=== PATIENT | female | born 1950 | race Caucasian/White ===

== ENCOUNTER 2017-07-15 06:58 | Inpatient (IN) | payer BC ==
[2017-07-15] MEDS ORDERED: ceFAZolin 1 GM Vial ONE (07:10)
[2017-07-15] MEDS ORDERED: Ondansetron 4 MG/2 ML SDV ONE (07:10)
[2017-07-15] MEDS ORDERED: Morphine PF 10 MG/10 ML SDV ONE (07:11)
[2017-07-15] MEDS ORDERED: Propofol 200 MG/20 ML SDV ONE ×2 (07:11→09:28)
[2017-07-15] MEDS ORDERED: fentaNYL 100 MCG/2 ML SDV ONE (07:11)
[2017-07-15] MEDS ORDERED: Midazolam 1 MG/ML 2 ML SDV ONE (07:11)
[2017-07-15] MEDS ORDERED: Sodium Chloride 0.9% 10 ML Syringe FLUSH PRN (07:28)
[2017-07-15] MEDS ORDERED: Lactated Ringers 1,000 ML IV SCH (07:28)
[2017-07-15] MEDS ORDERED: Lidocaine 1%/Sod Bicarbonate in NS 8.4% 1 ML Syringe PRN (07:28)
--- NOTE | 2017-07-15 07:34 | PCM.PREANE ---
Preanesthetic Assessment - Anesthesia/Transfusion/Family Hx Anesthesia History: Prior Anesthesia Without Reaction Family History of Anesthesia Reaction: No Transfusion History: No Prior Transfusion(s) - Review of Systems General: No Symptoms Pulmonary: No Symptoms, Other Cardiovascular: Other (HTN, CAD) Gastrointestinal: No Symptoms Neurological: Other (back pain, arthritis in back ) Other: Reports: None - Physical Assessment NPO Status Date: 07/14/17 NPO Status Time: 20:30 Pulse: 58 O2 Sat by Pulse Oximetry: 98 Respiratory Rate: 16 Blood Pressure: 134/62 Temperature: 36.6 C Weight: 81.465 kg ASA Class: 2 Mental Status: Alert & Oriented x3 Airway Class: Mallampati = 2 Dentition: Reports: Normal Dentition Thyro-Mental Finger Breadths: 3 Mouth Opening Finger Breadths: 3 ROM/Head Extension: Full Lungs: Clear to Auscultation, Normal Respiratory Effort Cardiovascular: Regular Rate, Regular Rhythm - Lab Values: Laboratory Last Values MRSA (PCR) Negative 07/02/17 15:01 - Allergies Allergies/Adverse Reactions: Allergies Allergy/AdvReac Type Severity Reaction Status Date / Time Sulfa (Sulfonamide Allergy Hives Verified 07/14/17 12:32 Antibiotics) - Blood Blood Available: No Product(s) Available: None - Anesthesia Plan Pre-Op Medication Ordered: None - Acknowledgements Anesthesia Type Planned: Spinal Pt an Appropriate Candidate for the Planned Anesthesia: Yes Alternatives and Risks of Anesthesia Discussed w Pt/Guardian: Yes Pt/Guardian Understands and Agrees with Anesthesia Plan: Yes PreAnesthesia Questionnaire HEENT History: Reports: Impaired Vision, Other (See Below) Other HEENT History: wears glasses Cardiovascular History: Reports: High Cholesterol, Hypertension Respiratory History: Reports: None Genitourinary History: Reports: None [employer] History: Reports: None Musculoskeletal History: Reports: Other (See Below) Other Musculoskeletal History: chronic ankle pain, low back pain, right knee pain, right leg fracture, ankle dislocation Neurological History: Reports: None Psychiatric History: Reports: None Endocrine/Metabolic History: Reports: Obesity/BMI 30+ Hematologic History: Reports: None Immunologic History: Reports: None Oncologic (Cancer) History: Reports: None Dermatologic History: Reports: None - Past Surgical History Cardiovascular Surgical History: Reports: None Respiratory Surgical History: Reports: None GI Surgical History: Reports: Bariatric Procedure, Colonoscopy Other GI Surgeries/Procedures: lap band gastric surgery Female Surgical History: Reports: None Male Surgical History: Reports: None Endocrine Surgical History: Reports: None Neurological Surgical History: Reports: None Musculoskeletal Surgical History: Reports: Shoulder Surgery, Other (See Below) Other Musculoskeletal Surgeries/Procedures:: right leg fracture with surgery, knee arthroscopy, right rotator cuff repair - SUBSTANCE USE Smoking Status *Q: Former Smoker Recreational Drug Use History: No - HOME MEDS Home Medications: Home Meds Losartan [Cozaar] 50 mg PO DAILY 07/14/17 [History] Multivitamin [Daily Avelina] 1 tab PO DAILY 07/14/17 [History] cloNIDine HCl [Catapres] 0.2 mg PO BEDTIME 07/14/17 [History] traMADol [Ultram] 50 mg PO TID PRN 07/14/17 [History] - CURRENT (IN HOUSE) MEDS Current Meds: Current Medications Bisacodyl (Dulcolax) 5 mg PO DAILY PRN PRN Reason: Constipation Morphine Sulfate 8 mg/Epinephrine HCl 0.3 mg/Cefuroxime Sodium 750 mg/Ketorolac Tromethamine 30 mg/Sodium Chloride 27.9 ml 0 mg .XX ONETIME ONE Stop: 07/15/17 09:01 Cyclobenzaprine HCl (Flexeril) 10 mg PO TID PRN PRN Reason: Spasms Diphenhydramine HCl (Benadryl) 25 mg IVPUSH Q4H PRN PRN Reason: Nausea Docusate Sodium (Colace) 100 mg PO BID [facility] Famotidine (Pepcid) 20 mg PO BID [facility] Lactated Ringer's (Ringers, Lactated) 1,000 mls @ 125 mls/hr IV ASDIRECTED [facility] Stop: 07/15/17 23:00 Cefazolin Sodium/Dextrose 2 gm (/ Premix) 50 mls @ 100 mls/hr IV Q8H [facility] Stop: 07/15/17 23:29 Lidocaine/Sodium Bicarbonate (Buffered Lidocaine 1% In Ns 8.4%) 0.25 ml .XX ONETIME PRN PRN Reason: Prior to IV Start Stop: 07/15/17 18:00 Magnesium Hydroxide (Milk Of Magnesia) 30 ml PO BID PRN PRN Reason: Constipation Morphine Sulfate (Morphine) 2 mg IVPUSH Q2H PRN PRN Reason: Breakthrough Pain Ondansetron HCl (Zofran) 4 mg IVPUSH Q6H PRN PRN Reason: Nausea/Vomiting Oxycodone/Acetaminophen (Percocet 325-5 Mg) 1 - 2 tab PO Q4H PRN PRN Reason: Pain Rivaroxaban (Xarelto) 10 mg PO DAILY [facility] Senna (Senna) 8.6 mg PO BID PRN PRN Reason: Constipation Sodium Chloride (Saline Flush) 10 ml FLUSH ASDIRECTED PRN PRN Reason: Keep Vein Open Stop: 07/15/17 18:00 Discontinued Medications Cefazolin Sodium (Ancef) Confirm Administered Dose 2 gm .ROUTE .STK-MED ONE Stop: 07/15/17 07:11 Fentanyl (Sublimaze) Confirm Administered Dose 100 mcg .ROUTE .STK-MED ONE Stop: 07/15/17 07:12 Midazolam HCl (Versed 1 Mg/Ml) Confirm Administered Dose 2 mg .ROUTE .STK-MED ONE Stop: 07/15/17 07:12 Morphine Sulfate (Duramorph Pf) Confirm Administered Dose 10 mg .ROUTE .STK-MED ONE Stop: 07/15/17 07:12 Ondansetron HCl (Zofran) Confirm Administered Dose 4 mg .ROUTE .STK-MED ONE Stop: 07/15/17 07:11 Propofol (Diprivan 20 Ml) Confirm Administered Dose 400 mg .ROUTE .STK-MED ONE Stop: 07/15/17 07:12
[2017-07-15] MEDS ORDERED: ePHEDrine 50 MG/ML SDV ONE (09:10)
[2017-07-15] MEDS ORDERED: Lactated Ringers 1,000 ML ONE ×2 (09:10→10:20)
[2017-07-15] MEDS: Bupivacaine 0.25% 30 ML SDV ONE ×2 (09:20→09:50)
[2017-07-15] MEDS: ceFAZolin 1 GM Vial ONE ×2 (09:21→09:44)
[2017-07-15] MEDS: Iodine/Sodium Iodide 2% Tincture 30 ML Bottle ONE ×2 (09:22→09:41)
[2017-07-15] MEDS: Morphine 8 MG, EPINEPHrine 0.3 MG, Cefuroxime 750 MG, Ketorolac 30 MG, Sodium Chloride ... ONE ×15 (09:23→12:14)
[2017-07-15] MEDS ORDERED: Sennosides 8.6 MG Tab PO PRN (10:00)
[2017-07-15] MEDS ORDERED: Bisacodyl 5 MG Tab PO PRN (10:00)
[2017-07-15] MEDS ORDERED: Magnesium Hydroxide 400 MG/5 ML Susp 30 ML Cup PO PRN (10:00)
[2017-07-15] MEDS ORDERED: Morphine 2 MG/ML Syringe IVPUSH PRN (10:00)
[2017-07-15] MEDS ORDERED: Ondansetron 4 MG/2 ML SDV IVPUSH PRN ×2 (10:00→10:35)
[2017-07-15] MEDS ORDERED: diphenhydrAMINE 50 MG/ML SDV IVPUSH PRN ×2 (10:00→10:35)
--- NOTE | 2017-07-15 10:34 | PCM.POSTAN ---
POST ANESTHESIA ASSESSMENT - MENTAL STATUS Mental Status: Alert, Oriented - VITAL SIGNS Pulse Rate: 84 SaO2: 95 Resp Rate: 12 Blood Pressure: 116/49 Temperature: 36.2 C - RESPIRATORY Respiratory Status: Respiratory Rate WNL, Airway Patent, O2 Saturation Stable, Supplemental Oxygen - CARDIOVASCULAR CV Status: Pulse Rate WNL, Blood Pressure Stable - GASTROINTESTINAL GI Status: No Symptoms - PAIN Pain Score: 0 - POST OP HYDRATION Hydration Status: Adequate & Stable
[2017-07-15] MEDS ORDERED: fentaNYL 100 MCG/2 ML SDV IVPUSH PRN (10:35)
[2017-07-15] MEDS ORDERED: HYDROmorphone 0.5 MG/0.5 ML Syringe IVPUSH PRN (10:35)
--- NOTE | 2017-07-15 10:56 | CR ---
Right knee: AP and crosstable lateral views of the right knee were obtained. Comparison: Previous standing AP knee exam of 05/14/17. Right knee prosthesis is seen which has been recently placed. Components are aligned. Soft tissue air is noted from the surgical procedure. Underlying bony structures are intact. Impression: 1. Satisfactory radiographic appearance of recently placed right knee prosthesis. Diagnostic code #2
[2017-07-15] MEDS ORDERED: Vancomycin 1 GM SDV ONE (11:00)
[2017-07-15] MEDS: Acetaminophen/oxyCODONE 325-5 MG Tab PO PRN ×2 (13:01→21:53)
--- NOTE | 2017-07-15 14:05 | PCM.CONSN ---
- General Info Date of Service: 07/15/17 Subjective Update: 66 year old female with bilateral knee DJD, s/p right total knee arthroplasty. Denies N/V, currently is pain free. Hospitalist service is consulted for medical management. Functional Status: Reports: Pain Controlled, Tolerating Diet, Urinating - Review of Systems General: Reports: No Symptoms HEENT: Reports: No Symptoms Pulmonary: Reports: No Symptoms Cardiovascular: Reports: No Symptoms Gastrointestinal: Reports: No Symptoms Genitourinary: Reports: No Symptoms Musculoskeletal: Reports: No Symptoms Skin: Reports: No Symptoms Neurological: Reports: No Symptoms Psychiatric: Reports: No Symptoms - Patient Data Vitals - Most Recent: Last Vital Signs Temp 36.2 C 07/15/17 12:30 Pulse 68 07/15/17 13:30 Resp 16 07/15/17 13:30 BP 122/63 07/15/17 13:30 Pulse Ox 100 07/15/17 13:30 Weight - Most Recent: 81.193 kg I&O - Last 24 Hours: Intake & Output 07/14/17 07/15/17 07/15/17 22:59 06:59 14:59 Intake Total 150 Output Total 465 Balance -315 Med Orders - Current: Current Medications Bisacodyl (Dulcolax) 5 mg PO DAILY PRN PRN Reason: Constipation Clonidine HCl (Catapres) 0.2 mg PO BEDTIME [facility] Cyclobenzaprine HCl (Flexeril) 10 mg PO TID PRN PRN Reason: Spasms Diphenhydramine HCl (Benadryl) 25 mg IVPUSH Q4H PRN PRN Reason: Nausea Diphenhydramine HCl (Benadryl) 25 mg IVPUSH Q6H PRN PRN Reason: itching Stop: 07/15/17 18:00 Docusate Sodium (Colace) 100 mg PO BID [facility] Famotidine (Pepcid) 20 mg PO BID [facility] Fentanyl (Sublimaze) 50 mcg IVPUSH Q5M PRN PRN Reason: pain Stop: 07/15/17 18:00 Cefazolin Sodium/Dextrose 2 gm (/ Premix) 50 mls @ 100 mls/hr IV Q8H [facility] Stop: 07/16/17 07:59 Losartan Potassium (Cozaar) 50 mg PO DAILY [facility] Magnesium Hydroxide (Milk Of Magnesia) 30 ml PO BID PRN PRN Reason: Constipation Morphine Sulfate (Morphine) 2 mg IVPUSH Q2H PRN PRN Reason: Breakthrough Pain Ondansetron HCl (Zofran) 4 mg IVPUSH Q6H PRN PRN Reason: Nausea/Vomiting Ondansetron HCl (Zofran) 4 mg IVPUSH ONETIME PRN PRN Reason: Nausea/Vomiting Oxycodone/Acetaminophen (Percocet 325-5 Mg) 1 - 2 tab PO Q4H PRN PRN Reason: Pain Last Admin: 07/15/17 13:01 Dose: 2 tab Rivaroxaban (Xarelto) 10 mg PO DAILY [facility] Senna (Senna) 8.6 mg PO BID PRN PRN Reason: Constipation Sodium Chloride (Saline Flush) 10 ml FLUSH ASDIRECTED PRN PRN Reason: Keep Vein Open Stop: 07/15/17 18:00 Discontinued Medications Bupivacaine HCl (Marcaine 0.25%) Confirm Administered Dose 30 ml .ROUTE .STK- MED ONE Stop: 07/15/17 07:34 Last Admin: 07/15/17 09:50 Dose: 30 ml Cefazolin Sodium (Ancef) Confirm Administered Dose 2 gm .ROUTE .STK-MED ONE Stop: 07/15/17 07:11 Cefazolin Sodium (Ancef) Confirm Administered Dose 2 gm .ROUTE .STK-MED ONE Stop: 07/15/17 07:34 Last Admin: 07/15/17 09:44 Dose: 2 gm Morphine Sulfate 8 mg/Epinephrine HCl 0.3 mg/Cefuroxime Sodium 750 mg/Ketorolac Tromethamine 30 mg/Sodium Chloride 27.9 ml 0 mg .XX ONETIME ONE Stop: 07/15/17 09:01 Last Admin: 07/15/17 12:14 Dose: Not Given Ephedrine Sulfate (Ephedrine Sulfate) Confirm Administered Dose 50 mg .ROUTE .STK-MED ONE Stop: 07/15/17 09:11 Fentanyl (Sublimaze) Confirm Administered Dose 100 mcg .ROUTE .STK-MED ONE Stop: 07/15/17 07:12 Hydromorphone HCl (Dilaudid) 0.5 mg IVPUSH Q15M PRN PRN Reason: Pain (severe 7-10) Stop: 07/15/17 10:36 Lactated Ringer's (Ringers, Lactated) 1,000 mls @ 125 mls/hr IV ASDIRECTED [facility] Stop: 07/15/17 23:00 Last Admin: 07/15/17 07:30 Dose: 125 mls/hr Lactated Ringer's (Ringers, Lactated) Confirm Administered Dose 1,000 mls @ as directed .ROUTE .STK-MED ONE Stop: 07/15/17 09:11 Lactated Ringer's (Ringers, Lactated) Confirm Administered Dose 1,000 mls @ as directed .ROUTE .STK-MED ONE Stop: 07/15/17 10:21 Iodine (Iodine 2% Mild Tincture) Confirm Administered Dose 30 ml .ROUTE .STK- MED ONE Stop: 07/15/17 07:34 Last Admin: 07/15/17 09:41 Dose: 18 ml Lidocaine/Sodium Bicarbonate (Buffered Lidocaine 1% In Ns 8.4%) 0.25 ml .XX ONETIME PRN PRN Reason: Prior to IV Start Stop: 07/15/17 18:00 Last Admin: 07/15/17 07:29 Dose: 0.25 ml Midazolam HCl (Versed 1 Mg/Ml) Confirm Administered Dose 2 mg .ROUTE .STK-MED ONE Stop: 07/15/17 07:12 Morphine Sulfate (Duramorph Pf) Confirm Administered Dose 10 mg .ROUTE .STK-MED ONE Stop: 07/15/17 07:12 Ondansetron HCl (Zofran) Confirm Administered Dose 4 mg .ROUTE .STK-MED ONE Stop: 07/15/17 07:11 Propofol (Diprivan 20 Ml) Confirm Administered Dose 400 mg .ROUTE .STK-MED ONE Stop: 07/15/17 07:12 Propofol (Diprivan 20 Ml) Confirm Administered Dose 200 mg .ROUTE .STK-MED ONE Stop: 07/15/17 09:29 Tranexamic Acid (Cyklokapron) Confirm Administered Dose 1,000 mg .ROUTE .STK- MED ONE Stop: 07/15/17 07:34 Last Admin: 07/15/17 09:56 Dose: 1,000 mg Vancomycin HCl (Vancomycin) 1 gm .XX ONETIME ONE Stop: 07/15/17 11:01 Last Admin: 07/15/17 13:12 Dose: Not Given - Exam Quality Assessment: Urine Catheter, DVT Prophylaxis General: Alert, Oriented, Cooperative, No Acute Distress HEENT: Pupils Equal, Pupils Reactive, EOMI Neck: Supple, Trachea Midline Lungs: Normal Respiratory Effort Cardiovascular: Regular Rate, Regular Rhythm GI/Abdominal Exam: Normal Bowel Sounds, Soft, Non-Tender, No Organomegaly, No Distention (Female) Exam: Deferred Back Exam: Normal Inspection Extremities: Normal Inspection Skin: Warm Wound/Incisions: Dressing Dry and Intact Neurological: No New Focal Deficit Psy/Mental Status: Alert, Normal Affect, Normal Mood Consult PN Assessment/Plan POD#: 0 Procedures: Procedures ASSAY OF PREALBUMIN (06/25/17) CHEST X-RAY 2VW FRONTAL&LATL (06/25/17) COMPLETE CBC W/AUTO DIFF WBC (06/25/17) COMPREHEN METABOLIC PANEL (06/25/17) DXA BONE DENSITY AXIAL (07/04/17) MANUAL THERAPY 1/> REGIONS (06/17/17) PROTHROMBIN TIME (06/25/17) PT EVAL MOD COMPLEX 30 MIN (06/07/17) ROUTINE VENIPUNCTURE (06/25/17) THERAPEUTIC EXERCISES (06/17/17) THROMBOPLASTIN TIME PARTIAL (06/25/17) ULTRASOUND THERAPY (06/07/17) X-RAY EXAM OF ANKLE (05/14/17) X-RAY EXAM OF KNEE 1 OR 2 (05/14/17) X-RAY EXAM OF KNEES (05/14/17) (1) Status post total right knee replacement SNOMED Code(s): 5824087144577 Code(s): Z96.651 - PRESENCE OF RIGHT ARTIFICIAL KNEE JOINT Current Visit: Yes (2) Hypertension SNOMED Code(s): 58918063 Code(s): I10 - ESSENTIAL (PRIMARY) HYPERTENSION Current Visit: Yes (3) Hyperlipidemia SNOMED Code(s): 57040468 Code(s): E78.5 - HYPERLIPIDEMIA, UNSPECIFIED Current Visit: Yes (4) Tobacco abuse, in remission SNOMED Code(s): 308417884 Code(s): F17.201 - NICOTINE DEPENDENCE, UNSPECIFIED, IN REMISSION Current Visit: Yes Problem List Initiated/Reviewed/Updated: Yes Plan: Impression/Plan: Post Op, Day 0 Right total knee arthroplasty Right knee OA, history of bilateral knee DJD Chronic HTN HLD Plan: Pain mgt DVT prophylaxis Home meds Daily labs SW/PT/OT
[2017-07-15] MEDS: ceFAZolin 2 GM in Premix Bag 1 BAG IV SCH (14:43)
[2017-07-15] MEDS: Famotidine 20 MG Tab PO SCH (20:15)
[2017-07-15] MEDS: Docusate Sodium 100 MG Cap PO SCH (20:15)
[2017-07-15] MEDS ORDERED: cloNIDine 0.1 MG Tab PO SCH (21:00)
[2017-07-16] MEDS: ceFAZolin 2 GM in Premix Bag 1 BAG IV SCH ×2 (00:21→06:40)
[2017-07-16] MEDS: Acetaminophen/oxyCODONE 325-5 MG Tab PO PRN ×3 (02:20→11:32)
[2017-07-16] MEDS: Cyclobenzaprine 10 MG Tab PO PRN ×2 (04:39→12:38)
[2017-07-16] MEDS: Docusate Sodium 100 MG Cap PO SCH (08:50)
[2017-07-16] MEDS: Famotidine 20 MG Tab PO SCH (08:55)
[2017-07-16] MEDS ORDERED: Losartan 25 MG Tab PO SCH (09:00)
[2017-07-16] MEDS ORDERED: Rivaroxaban 10 MG Tab PO SCH (09:00)
--- NOTE | 2017-07-16 10:26 | PCM.CONSN ---
- General Info Date of Service: 07/16/17 Admission Dx/Problem (Free Text): POD #1, Rt TKA with Dr. Laird. Doing well, pain controlled, no nausea. Up and moving, voiding. VSS. Hgb 11.1 today. Functional Status: Reports: Pain Controlled, Tolerating Diet, Ambulating, Urinating, Incentive Spirometry. Denies: New Symptoms - Review of Systems General: Reports: No Symptoms HEENT: Reports: No Symptoms Pulmonary: Reports: No Symptoms Cardiovascular: Reports: No Symptoms Gastrointestinal: Reports: No Symptoms Genitourinary: Reports: No Symptoms Musculoskeletal: Reports: Leg Pain (pain controlled) Skin: Reports: No Symptoms Neurological: Reports: No Symptoms Psychiatric: Reports: No Symptoms - Patient Data Vitals - Most Recent: Last Vital Signs Temp 98.2 F 07/16/17 07:18 Pulse 71 07/16/17 07:18 Resp 18 07/16/17 07:18 BP 119/60 07/16/17 08:54 Pulse Ox 96 07/16/17 07:18 Weight - Most Recent: 188 lb 6.4 oz I&O - Last 24 Hours: Intake & Output 07/15/17 07/16/17 07/16/17 22:59 06:59 14:59 Intake Total 1980 1050 Output Total 200 1500 Balance 1780 -450 Lab Results Last 24 Hours: Laboratory Results - last 24 hr 07/16/17 07/16/17 Range/Units 07:00 07:00 WBC 6.39 (3.98-10.04) K/mm3 RBC 3.90 L (3.98-5.22) M/mm3 Hgb 11.1 L (11.2-15.7) gm/L Hct 33.8 L (34.1-44.9) % MCV 86.7 (79.4-94.8) fl MCH 28.5 (25.6-32.2) pg MCHC 32.8 (32.2-35.5) g/dl RDW Std Deviation 38.5 (36.4-46.3) fL Plt Count 280 (182-369) K/mm3 MPV 8.2 L (9.4-12.3) fl Sodium 138 (136-145) mEq/L Potassium 4.3 (3.5-5.1) mEq/L Chloride 104 (98-107) mEq/L Carbon Dioxide 29 (21-32) mEq/L Anion Gap 9.3 (5-15) BUN 16 (7-18) mg/dL Creatinine 1.0 (0.55-1.02) mg/dL Est Cr Clr Drug Dosing 44.95 mL/min Estimated GFR (MDRD) 56 (>60) mL/min BUN/Creatinine Ratio 16.0 (14-18) Glucose 118 H (80-115) mg/dL Calcium 8.7 (8.5-10.1) mg/dL Total Bilirubin 0.4 (0.2-1.0) mg/dL AST 22 (15-37) U/L ALT 28 (14-59) U/L Alkaline Phosphatase 68 (46-116) U/L Total Protein 5.9 L (6.4-8.2) g/dl Albumin 2.8 L (3.4-5.0) g/dl Globulin 3.1 gm/dL Albumin/Globulin Ratio 0.9 L (1-2) Med Orders - Current: Current Medications Bisacodyl (Dulcolax) 5 mg PO DAILY PRN PRN Reason: Constipation Clonidine HCl (Catapres) 0.2 mg PO BEDTIME [facility] Last Admin: 07/15/17 20:15 Dose: 0.2 mg Cyclobenzaprine HCl (Flexeril) 10 mg PO TID PRN PRN Reason: Spasms Last Admin: 07/16/17 04:39 Dose: 10 mg Diphenhydramine HCl (Benadryl) 25 mg IVPUSH Q4H PRN PRN Reason: Nausea Docusate Sodium (Colace) 100 mg PO BID [facility] Last Admin: 07/16/17 08:50 Dose: 100 mg Famotidine (Pepcid) 20 mg PO BID [facility] Last Admin: 07/16/17 08:55 Dose: 20 mg Losartan Potassium (Cozaar) 50 mg PO DAILY [facility] Last Admin: 07/16/17 08:54 Dose: 50 mg Magnesium Hydroxide (Milk Of Magnesia) 30 ml PO BID PRN PRN Reason: Constipation Morphine Sulfate (Morphine) 2 mg IVPUSH Q2H PRN PRN Reason: Breakthrough Pain Last Admin: 07/16/17 10:07 Dose: 2 mg Ondansetron HCl (Zofran) 4 mg IVPUSH Q6H PRN PRN Reason: Nausea/Vomiting Ondansetron HCl (Zofran) 4 mg IVPUSH ONETIME PRN PRN Reason: Nausea/Vomiting Oxycodone/Acetaminophen (Percocet 325-5 Mg) 1 - 2 tab PO Q4H PRN PRN Reason: Pain Last Admin: 07/16/17 06:40 Dose: 2 tab Rivaroxaban (Xarelto) 10 mg PO DAILY [facility] Last Admin: 07/16/17 08:55 Dose: 10 mg Senna (Senna) 8.6 mg PO BID PRN PRN Reason: Constipation Discontinued Medications Bupivacaine HCl (Marcaine 0.25%) Confirm Administered Dose 30 ml .ROUTE .STK- MED ONE Stop: 07/15/17 07:34 Last Admin: 07/15/17 09:50 Dose: 30 ml Cefazolin Sodium (Ancef) Confirm Administered Dose 2 gm .ROUTE .STK-MED ONE Stop: 07/15/17 07:11 Cefazolin Sodium (Ancef) Confirm Administered Dose 2 gm .ROUTE .STK-MED ONE Stop: 07/15/17 07:34 Last Admin: 07/15/17 09:44 Dose: 2 gm Morphine Sulfate 8 mg/Epinephrine HCl 0.3 mg/Cefuroxime Sodium 750 mg/Ketorolac Tromethamine 30 mg/Sodium Chloride 27.9 ml 0 mg .XX ONETIME ONE Stop: 07/15/17 09:01 Last Admin: 07/15/17 12:14 Dose: Not Given Diphenhydramine HCl (Benadryl) 25 mg IVPUSH Q6H PRN PRN Reason: itching Stop: 07/15/17 18:00 Ephedrine Sulfate (Ephedrine Sulfate) Confirm Administered Dose 50 mg .ROUTE .STK-MED ONE Stop: 07/15/17 09:11 Fentanyl (Sublimaze) Confirm Administered Dose 100 mcg .ROUTE .STK-MED ONE Stop: 07/15/17 07:12 Fentanyl (Sublimaze) 50 mcg IVPUSH Q5M PRN PRN Reason: pain Stop: 07/15/17 18:00 Hydromorphone HCl (Dilaudid) 0.5 mg IVPUSH Q15M PRN PRN Reason: Pain (severe 7-10) Stop: 07/15/17 10:36 Lactated Ringer's (Ringers, Lactated) 1,000 mls @ 125 mls/hr IV ASDIRECTED [facility] Stop: 07/15/17 23:00 Last Admin: 07/15/17 07:30 Dose: 125 mls/hr Cefazolin Sodium/Dextrose 2 gm (/ Premix) 50 mls @ 100 mls/hr IV Q8H [facility] Stop: 07/16/17 07:59 Last Admin: 07/16/17 06:40 Dose: 100 mls/hr Lactated Ringer's (Ringers, Lactated) Confirm Administered Dose 1,000 mls @ as directed .ROUTE .STK-MED ONE Stop: 07/15/17 09:11 Lactated Ringer's (Ringers, Lactated) Confirm Administered Dose 1,000 mls @ as directed .ROUTE .STK-MED ONE Stop: 07/15/17 10:21 Iodine (Iodine 2% Mild Tincture) Confirm Administered Dose 30 ml .ROUTE .STK- MED ONE Stop: 07/15/17 07:34 Last Admin: 07/15/17 09:41 Dose: 18 ml Lidocaine/Sodium Bicarbonate (Buffered Lidocaine 1% In Ns 8.4%) 0.25 ml .XX ONETIME PRN PRN Reason: Prior to IV Start Stop: 07/15/17 18:00 Last Admin: 07/15/17 07:29 Dose: 0.25 ml Midazolam HCl (Versed 1 Mg/Ml) Confirm Administered Dose 2 mg .ROUTE .STK-MED ONE Stop: 07/15/17 07:12 Morphine Sulfate (Duramorph Pf) Confirm Administered Dose 10 mg .ROUTE .STK-MED ONE Stop: 07/15/17 07:12 Ondansetron HCl (Zofran) Confirm Administered Dose 4 mg .ROUTE .STK-MED ONE Stop: 07/15/17 07:11 Propofol (Diprivan 20 Ml) Confirm Administered Dose 400 mg .ROUTE .STK-MED ONE Stop: 07/15/17 07:12 Propofol (Diprivan 20 Ml) Confirm Administered Dose 200 mg .ROUTE .STK-MED ONE Stop: 07/15/17 09:29 Sodium Chloride (Saline Flush) 10 ml FLUSH ASDIRECTED PRN PRN Reason: Keep Vein Open Stop: 07/15/17 18:00 Tranexamic Acid (Cyklokapron) Confirm Administered Dose 1,000 mg .ROUTE .STK- MED ONE Stop: 07/15/17 07:34 Last Admin: 07/15/17 09:56 Dose: 1,000 mg Vancomycin HCl (Vancomycin) 1 gm .XX ONETIME ONE Stop: 07/15/17 11:01 Last Admin: 07/15/17 13:12 Dose: Not Given - Exam Quality Assessment: Supplemental Oxygen, DVT Prophylaxis General: Alert, Oriented, Cooperative, No Acute Distress HEENT: Pupils Equal, EOMI, Mucous Membr. Moist/Nikep Neck: Supple Lungs: Clear to Auscultation, Normal Respiratory Effort, Decreased Breath Sounds (bases) Cardiovascular: Regular Rate, Regular Rhythm GI/Abdominal Exam: Normal Bowel Sounds, Soft, Non-Tender (Female) Exam: Deferred Extremities: Normal Capillary Refill, Other (teds, SCD's, ice to knee. CMS + and = bilat to LE) Peripheral Pulses: 2+: Dorsalis Pedis (L), Dorsalis Pedis (R) Skin: Warm, Dry Wound/Incisions: Dressing Dry and Intact Neurological: No New Focal Deficit Psy/Mental Status: Alert, Normal Affect Consult PN Assessment/Plan POD#: 1 Procedures: Procedures ASSAY OF PREALBUMIN (06/25/17) CHEST X-RAY 2VW FRONTAL&LATL (06/25/17) COMPLETE CBC W/AUTO DIFF WBC (06/25/17) COMPREHEN METABOLIC PANEL (06/25/17) DXA BONE DENSITY AXIAL (07/04/17) MANUAL THERAPY 1/> REGIONS (06/17/17) PROTHROMBIN TIME (06/25/17) PT EVAL MOD COMPLEX 30 MIN (06/07/17) ROUTINE VENIPUNCTURE (06/25/17) THERAPEUTIC EXERCISES (06/17/17) THROMBOPLASTIN TIME PARTIAL (06/25/17) ULTRASOUND THERAPY (06/07/17) X-RAY EXAM OF ANKLE (05/14/17) X-RAY EXAM OF KNEE 1 OR 2 (05/14/17) X-RAY EXAM OF KNEES (05/14/17) (1) Status post total right knee replacement SNOMED Code(s): 2516249625840 Code(s): Z96.651 - PRESENCE OF RIGHT ARTIFICIAL KNEE JOINT Priority: High Current Visit: Yes (2) Osteoarthritis SNOMED Code(s): 592520439 Code(s): M19.90 - UNSPECIFIED OSTEOARTHRITIS, UNSPECIFIED SITE Priority: High Current Visit: Yes Qualifiers: Osteoarthritis location: knee Osteoarthritis type: primary Laterality: right Qualified Code(s): M17.11 - Unilateral primary osteoarthritis, right knee (3) Hypertension SNOMED Code(s): 85278416 Code(s): I10 - ESSENTIAL (PRIMARY) HYPERTENSION Priority: Medium Current Visit: No Qualifiers: Hypertension type: essential hypertension Qualified Code(s): I10 - Essential (primary) hypertension (4) Hyperlipidemia SNOMED Code(s): 70972816 Code(s): E78.5 - HYPERLIPIDEMIA, UNSPECIFIED Priority: Medium Current Visit: No Qualifiers: Hyperlipidemia type: unspecified Qualified Code(s): E78.5 - Hyperlipidemia , unspecified (5) Tobacco abuse, in remission SNOMED Code(s): 816848880 Code(s): F17.201 - NICOTINE DEPENDENCE, UNSPECIFIED, IN REMISSION Priority : Medium Current Visit: No Problem List Initiated/Reviewed/Updated: Yes Plan: I/P: S/P Rt TKA, with Dr. Laird, POD #1 -Pain management and DVT prophylax -PT/OT -RT/IS -Hgb 11.1 this am -VSS Chronic conditions: Cont home meds HTN- stable HLD Hx of tobacco use Other: CM/SW for assist with DC planning- OK from Hospitalist standpoint for DC home today with family GI prophylax Patient is Full Code status
[2017-07-16] MEDS ORDERED: oxyCODONE 5 MG Tab PO PRN (13:04)
--- NOTE | 2017-07-16 13:55 | PCM48HPAN ---
Post Anesthesia Note - EVALUATION WITHIN 48HRS OF ANESTHETIC Vital Signs in Normal Range: Yes Patient Participated in Evaluation: Yes Respiratory Function Stable: Yes Airway Patent: Yes Cardiovascular Function Stable: Yes Hydration Status Stable: Yes Pain Control Satisfactory: Yes Nausea and Vomiting Control Satisfactory: Yes Mental Status Recovered: Yes
[2017-07-16] MEDS ORDERED: Ketorolac 15 MG/ML SDV IVPUSH ONE (14:40)
--- NOTE | 2017-07-17 06:20 | PCM.SURGPN ---
- General Info Date of Service: 07/16/17 POD#: 1 Functional Status: Reports: Tolerating Diet, Ambulating, Urinating, Incentive Spirometry, Other (The pt reported her pain was under better control this afternoon.) - Review of Systems Musculoskeletal: Reports: Other (The pt met inpatient therapy goals. She stated she feels prepared for discharge to home.) - Patient Data Vitals - Most Recent: Last Vital Signs Temp 99.0 F 07/16/17 15:07 Pulse 98 07/16/17 15:07 Resp 17 07/16/17 15:07 BP 130/46 L 07/16/17 15:07 Pulse Ox 96 07/16/17 15:07 Weight - Most Recent: 188 lb 6.4 oz I&O - Last 24 Hours: Intake & Output 07/16/17 07/16/17 07/17/17 14:59 22:59 06:59 Intake Total 300 780 Output Total 1175 Balance 300 -395 Lab Results Last 24 Hrs: Laboratory Results - last 24 hr 07/16/17 07/16/17 Range/Units 07:00 07:00 WBC 6.39 (3.98-10.04) K/mm3 RBC 3.90 L (3.98-5.22) M/mm3 Hgb 11.1 L (11.2-15.7) gm/L Hct 33.8 L (34.1-44.9) % MCV 86.7 (79.4-94.8) fl MCH 28.5 (25.6-32.2) pg MCHC 32.8 (32.2-35.5) g/dl RDW Std Deviation 38.5 (36.4-46.3) fL Plt Count 280 (182-369) K/mm3 MPV 8.2 L (9.4-12.3) fl Sodium 138 (136-145) mEq/L Potassium 4.3 (3.5-5.1) mEq/L Chloride 104 (98-107) mEq/L Carbon Dioxide 29 (21-32) mEq/L Anion Gap 9.3 (5-15) BUN 16 (7-18) mg/dL Creatinine 1.0 (0.55-1.02) mg/dL Est Cr Clr Drug Dosing 44.95 mL/min Estimated GFR (MDRD) 56 (>60) mL/min BUN/Creatinine Ratio 16.0 (14-18) Glucose 118 H (80-115) mg/dL Calcium 8.7 (8.5-10.1) mg/dL Total Bilirubin 0.4 (0.2-1.0) mg/dL AST 22 (15-37) U/L ALT 28 (14-59) U/L Alkaline Phosphatase 68 (46-116) U/L Total Protein 5.9 L (6.4-8.2) g/dl Albumin 2.8 L (3.4-5.0) g/dl Globulin 3.1 gm/dL Albumin/Globulin Ratio 0.9 L (1-2) Med Orders - Current: Current Medications Discontinued Medications Bisacodyl (Dulcolax) 5 mg PO DAILY PRN PRN Reason: Constipation Bupivacaine HCl (Marcaine 0.25%) Confirm Administered Dose 30 ml .ROUTE .STK- MED ONE Stop: 07/15/17 07:34 Last Admin: 07/15/17 09:50 Dose: 30 ml Cefazolin Sodium (Ancef) Confirm Administered Dose 2 gm .ROUTE .STK-MED ONE Stop: 07/15/17 07:11 Cefazolin Sodium (Ancef) Confirm Administered Dose 2 gm .ROUTE .STK-MED ONE Stop: 07/15/17 07:34 Last Admin: 07/15/17 09:44 Dose: 2 gm Clonidine HCl (Catapres) 0.2 mg PO BEDTIME [facility] Last Admin: 07/15/17 20:15 Dose: 0.2 mg Morphine Sulfate 8 mg/Epinephrine HCl 0.3 mg/Cefuroxime Sodium 750 mg/Ketorolac Tromethamine 30 mg/Sodium Chloride 27.9 ml 0 mg .XX ONETIME ONE Stop: 07/15/17 09:01 Last Admin: 07/15/17 12:14 Dose: Not Given Cyclobenzaprine HCl (Flexeril) 10 mg PO TID PRN PRN Reason: Spasms Last Admin: 07/16/17 12:38 Dose: 10 mg Diphenhydramine HCl (Benadryl) 25 mg IVPUSH Q4H PRN PRN Reason: Nausea Diphenhydramine HCl (Benadryl) 25 mg IVPUSH Q6H PRN PRN Reason: itching Stop: 07/15/17 18:00 Docusate Sodium (Colace) 100 mg PO BID [facility] Last Admin: 07/16/17 08:50 Dose: 100 mg Ephedrine Sulfate (Ephedrine Sulfate) Confirm Administered Dose 50 mg .ROUTE .STK-MED ONE Stop: 07/15/17 09:11 Famotidine (Pepcid) 20 mg PO BID [facility] Last Admin: 07/16/17 08:55 Dose: 20 mg Fentanyl (Sublimaze) Confirm Administered Dose 100 mcg .ROUTE .STK-MED ONE Stop: 07/15/17 07:12 Fentanyl (Sublimaze) 50 mcg IVPUSH Q5M PRN PRN Reason: pain Stop: 07/15/17 18:00 Hydromorphone HCl (Dilaudid) 0.5 mg IVPUSH Q15M PRN PRN Reason: Pain (severe 7-10) Stop: 07/15/17 10:36 Lactated Ringer's (Ringers, Lactated) 1,000 mls @ 125 mls/hr IV ASDIRECTED [facility] Stop: 07/15/17 23:00 Last Admin: 07/15/17 07:30 Dose: 125 mls/hr Cefazolin Sodium/Dextrose 2 gm (/ Premix) 50 mls @ 100 mls/hr IV Q8H [facility] Stop: 07/16/17 07:59 Last Admin: 07/16/17 06:40 Dose: 100 mls/hr Lactated Ringer's (Ringers, Lactated) Confirm Administered Dose 1,000 mls @ as directed .ROUTE .STK-MED ONE Stop: 07/15/17 09:11 Lactated Ringer's (Ringers, Lactated) Confirm Administered Dose 1,000 mls @ as directed .ROUTE .STK-MED ONE Stop: 07/15/17 10:21 Iodine (Iodine 2% Mild Tincture) Confirm Administered Dose 30 ml .ROUTE .STK- MED ONE Stop: 07/15/17 07:34 Last Admin: 07/15/17 09:41 Dose: 18 ml Ketorolac Tromethamine (Toradol) 15 mg IVPUSH ONETIME ONE Stop: 07/16/17 14:41 Last Admin: 07/16/17 15:10 Dose: 15 mg Lidocaine/Sodium Bicarbonate (Buffered Lidocaine 1% In Ns 8.4%) 0.25 ml .XX ONETIME PRN PRN Reason: Prior to IV Start Stop: 07/15/17 18:00 Last Admin: 07/15/17 07:29 Dose: 0.25 ml Losartan Potassium (Cozaar) 50 mg PO DAILY [facility] Last Admin: 07/16/17 08:54 Dose: 50 mg Magnesium Hydroxide (Milk Of Magnesia) 30 ml PO BID PRN PRN Reason: Constipation Midazolam HCl (Versed 1 Mg/Ml) Confirm Administered Dose 2 mg .ROUTE .STK-MED ONE Stop: 07/15/17 07:12 Morphine Sulfate (Duramorph Pf) Confirm Administered Dose 10 mg .ROUTE .STK-MED ONE Stop: 07/15/17 07:12 Morphine Sulfate (Morphine) 2 mg IVPUSH Q2H PRN PRN Reason: Breakthrough Pain Last Admin: 07/16/17 10:07 Dose: 2 mg Ondansetron HCl (Zofran) Confirm Administered Dose 4 mg .ROUTE .STK-MED ONE Stop: 07/15/17 07:11 Ondansetron HCl (Zofran) 4 mg IVPUSH Q6H PRN PRN Reason: Nausea/Vomiting Ondansetron HCl (Zofran) 4 mg IVPUSH ONETIME PRN PRN Reason: Nausea/Vomiting Oxycodone HCl (Oxycodone) 5 mg PO Q6H PRN PRN Reason: Pain (severe 7-10) Last Admin: 07/16/17 13:42 Dose: 5 mg Oxycodone/Acetaminophen (Percocet 325-5 Mg) 1 - 2 tab PO Q4H PRN PRN Reason: Pain Last Admin: 07/16/17 11:32 Dose: 2 tab Propofol (Diprivan 20 Ml) Confirm Administered Dose 400 mg .ROUTE .STK-MED ONE Stop: 07/15/17 07:12 Propofol (Diprivan 20 Ml) Confirm Administered Dose 200 mg .ROUTE .STK-MED ONE Stop: 07/15/17 09:29 Rivaroxaban (Xarelto) 10 mg PO DAILY [facility] Last Admin: 07/16/17 08:55 Dose: 10 mg Senna (Senna) 8.6 mg PO BID PRN PRN Reason: Constipation Sodium Chloride (Saline Flush) 10 ml FLUSH ASDIRECTED PRN PRN Reason: Keep Vein Open Stop: 07/15/17 18:00 Tranexamic Acid (Cyklokapron) Confirm Administered Dose 1,000 mg .ROUTE .STK- MED ONE Stop: 07/15/17 07:34 Last Admin: 07/15/17 09:56 Dose: 1,000 mg Vancomycin HCl (Vancomycin) 1 gm .XX ONETIME ONE Stop: 07/15/17 11:01 Last Admin: 07/15/17 13:12 Dose: Not Given - Exam Wound/Incisions: Dressing Dry and Intact General: Alert, Cooperative, No Acute Distress Lungs: Normal Respiratory Effort Extremities: Other (NVS intact for BLE. Laya's negative.) - Problem List Review Problem List Initiated/Reviewed/Updated: Yes - My Orders Last 24 Hours: Active Orders 24 hr Category Date Time Status Ready for Discharge [RC] PER UNIT ROUTINE Care 07/16/17 10:31 Active - Assessment Assessment (Free Text/Narrative):: POD#1 - right TKA - Plan Plan (Free Text/Narrative):: 1. Hgb 11.1. 2. Discharge to home today. 3. Toni [place], frequent mobility. 4. Outpatient P.T. The pt's case was discussed with Dr. Laird today.
--- NOTE | 2017-07-17 06:22 | PCM.DCSUM1 ---
Discharge Summary - Hospital Course Brief History: Milagro is a 66 yo female who underwent right TKA with Dr. Laird on 07-15-17. The procedure was completed under spinal anesthesia with MAC. The pt tolerated the procedure well and was admitted to the Medical-Surgical Unit. The pt received Ancef james-operatively. She participated in P.T. and O.T. and progressed well. She was allowed to WBAT and used a FWW for mobility. The pt' s surgical wound was dressed with a Mepilex dressing and remained clean and dry. On POD#1, the pt was started on Xarelto 10mg PO daily for VTE prophylaxis. The pt used TEDs and SCDs also. On POD#1, the pt's hemoglobin was 11.1. Medial management was provided by the Hospitalist service and the pt' s hospital course was uneventful. On POD#1, the pt was deemed appropriate for discharge to home with family. - Discharge Data Discharge Date: 07/16/17 Discharge Disposition: Home, Self-Care 01 Condition: Good - Patient Summary/Data Consults: Consultations 07/15/17 06:59 Consult to Physician [CONS] Routine OT Evaluation and Treatment [CONS] Routine 07/15/17 07:04 PT Evaluation and Treatment [CONS] Routine 07/15/17 15:21 Consult to [employer] [CONS] Routine - Patient Instructions Diet: Usual Diet as Tolerated Activity: Apply Ice, As Tolerated, Elevate Extremity, Full Weight Bearing Driving: Do Not Drive Wound/Incision Care: Keep Operative Site/Wound Site Clean and Dry, Do NOT Change Dressing Notify Provider of: Fever, Increased Pain, Swelling and Redness, Drainage, Nausea and/or Vomiting Other/Special Instructions: Please get up and moving around every hour while awake. This helps to prevent blood clots. Please take the Xarelto blood thinner medication daily. Please wear the ZOE hose during the day and you may remove them at night. Please schedule for P.T. Complete the P.T. exercises and stretches that were instructed in the Hospital. Please use the pain medication and muscle relaxant as needed. The medication may cause drowsiness and/or constipation. You could use a stool softener like docusate sodium or Colace 100mg twice daily and/or a laxative like polyethylene glycol or Miralax daily for constipation. Contact your primary care provider for further instructions if you are constipated. Please schedule an appointment with your primary care provider for 'routine post-op care'. Use the incentive spirometer often. Please place ice to the knee often. Please elevate the limb to decrease swelling. Keep the Mepilex dressing in place until follow-up. Please increase your intake of protein in your diet. Please call [phone] with questions or concerns. - Discharge Plan Prescriptions/Med Rec: Acetaminophen/oxyCODONE [Percocet 325-5 MG] 1 - 2 tab PO Q4H PRN #60 tablet PRN Reason: Pain Cyclobenzaprine [Flexeril] 10 mg PO Q8H PRN #40 tablet PRN Reason: muscle spasms Docusate Sodium [Colace] 100 mg PO BID PRN #30 cap PRN Reason: Constipation Famotidine [Pepcid] 20 mg PO BID #60 tablet Rivaroxaban [Xarelto] 10 mg PO DAILY #35 tablet Home Medications: Home Meds Losartan [Cozaar] 50 mg PO DAILY 07/14/17 [History] Multivitamin [Daily Avelina] 1 tab PO DAILY 07/14/17 [History] cloNIDine HCl [Catapres] 0.2 mg PO BEDTIME 07/14/17 [History] Acetaminophen/oxyCODONE [Percocet 325-5 MG] 1 - 2 tab PO Q4H PRN #60 tablet 03/25 [Rx] Cyclobenzaprine [Flexeril] 10 mg PO Q8H PRN #40 tablet 07/16/17 [Rx] Docusate Sodium [Colace] 100 mg PO BID PRN #30 cap 07/16/17 [Rx] Famotidine [Pepcid] 20 mg PO BID #60 tablet 07/16/17 [Rx] Rivaroxaban [Xarelto] 10 mg PO DAILY #35 tablet 07/16/17 [Rx] Patient Handouts: Total Knee Replacement, Care After, [id number], Hand Washing, [id number], Total Knee Replacement, [id number], Surgical Site Infections FAQs - COATS Referrals: Sharon Benavides PA-C [[facility]] - (Please see Sharon Benavides on Saturday at 9:30 AM 07/23/17 and Saturday at 9:00 AM 07/30/17.) - Patient Data Vitals - Most Recent: Last Vital Signs Temp 99.0 F 07/16/17 15:07 Pulse 98 07/16/17 15:07 Resp 17 07/16/17 15:07 BP 130/46 L 07/16/17 15:07 Pulse Ox 96 07/16/17 15:07 Weight - Most Recent: 188 lb 6.4 oz I&O - Last 24 hours: Intake & Output 07/16/17 07/16/17 07/17/17 14:59 22:59 06:59 Intake Total 300 780 Output Total 1175 Balance 300 -395 Lab Results - Last 24 hrs: Laboratory Results - last 24 hr 07/16/17 07/16/17 Range/Units 07:00 07:00 WBC 6.39 (3.98-10.04) K/mm3 RBC 3.90 L (3.98-5.22) M/mm3 Hgb 11.1 L (11.2-15.7) gm/L Hct 33.8 L (34.1-44.9) % MCV 86.7 (79.4-94.8) fl MCH 28.5 (25.6-32.2) pg MCHC 32.8 (32.2-35.5) g/dl RDW Std Deviation 38.5 (36.4-46.3) fL Plt Count 280 (182-369) K/mm3 MPV 8.2 L (9.4-12.3) fl Sodium 138 (136-145) mEq/L Potassium 4.3 (3.5-5.1) mEq/L Chloride 104 (98-107) mEq/L Carbon Dioxide 29 (21-32) mEq/L Anion Gap 9.3 (5-15) BUN 16 (7-18) mg/dL Creatinine 1.0 (0.55-1.02) mg/dL Est Cr Clr Drug Dosing 44.95 mL/min Estimated GFR (MDRD) 56 (>60) mL/min BUN/Creatinine Ratio 16.0 (14-18) Glucose 118 H (80-115) mg/dL Calcium 8.7 (8.5-10.1) mg/dL Total Bilirubin 0.4 (0.2-1.0) mg/dL AST 22 (15-37) U/L ALT 28 (14-59) U/L Alkaline Phosphatase 68 (46-116) U/L Total Protein 5.9 L (6.4-8.2) g/dl Albumin 2.8 L (3.4-5.0) g/dl Globulin 3.1 gm/dL Albumin/Globulin Ratio 0.9 L (1-2) Med Orders - Current: Current Medications Discontinued Medications Bisacodyl (Dulcolax) 5 mg PO DAILY PRN PRN Reason: Constipation Bupivacaine HCl (Marcaine 0.25%) Confirm Administered Dose 30 ml .ROUTE .STK- MED ONE Stop: 07/15/17 07:34 Last Admin: 07/15/17 09:50 Dose: 30 ml Cefazolin Sodium (Ancef) Confirm Administered Dose 2 gm .ROUTE .STK-MED ONE Stop: 07/15/17 07:11 Cefazolin Sodium (Ancef) Confirm Administered Dose 2 gm .ROUTE .STK-MED ONE Stop: 07/15/17 07:34 Last Admin: 07/15/17 09:44 Dose: 2 gm Clonidine HCl (Catapres) 0.2 mg PO BEDTIME [facility] Last Admin: 07/15/17 20:15 Dose: 0.2 mg Morphine Sulfate 8 mg/Epinephrine HCl 0.3 mg/Cefuroxime Sodium 750 mg/Ketorolac Tromethamine 30 mg/Sodium Chloride 27.9 ml 0 mg .XX ONETIME ONE Stop: 07/15/17 09:01 Last Admin: 07/15/17 12:14 Dose: Not Given Cyclobenzaprine HCl (Flexeril) 10 mg PO TID PRN PRN Reason: Spasms Last Admin: 07/16/17 12:38 Dose: 10 mg Diphenhydramine HCl (Benadryl) 25 mg IVPUSH Q4H PRN PRN Reason: Nausea Diphenhydramine HCl (Benadryl) 25 mg IVPUSH Q6H PRN PRN Reason: itching Stop: 07/15/17 18:00 Docusate Sodium (Colace) 100 mg PO BID [facility] Last Admin: 07/16/17 08:50 Dose: 100 mg Ephedrine Sulfate (Ephedrine Sulfate) Confirm Administered Dose 50 mg .ROUTE .STK-MED ONE Stop: 07/15/17 09:11 Famotidine (Pepcid) 20 mg PO BID [facility] Last Admin: 07/16/17 08:55 Dose: 20 mg Fentanyl (Sublimaze) Confirm Administered Dose 100 mcg .ROUTE .STK-MED ONE Stop: 07/15/17 07:12 Fentanyl (Sublimaze) 50 mcg IVPUSH Q5M PRN PRN Reason: pain Stop: 07/15/17 18:00 Hydromorphone HCl (Dilaudid) 0.5 mg IVPUSH Q15M PRN PRN Reason: Pain (severe 7-10) Stop: 07/15/17 10:36 Lactated Ringer's (Ringers, Lactated) 1,000 mls @ 125 mls/hr IV ASDIRECTED [facility] Stop: 07/15/17 23:00 Last Admin: 07/15/17 07:30 Dose: 125 mls/hr Cefazolin Sodium/Dextrose 2 gm (/ Premix) 50 mls @ 100 mls/hr IV Q8H [facility] Stop: 07/16/17 07:59 Last Admin: 07/16/17 06:40 Dose: 100 mls/hr Lactated Ringer's (Ringers, Lactated) Confirm Administered Dose 1,000 mls @ as directed .ROUTE .STK-MED ONE Stop: 07/15/17 09:11 Lactated Ringer's (Ringers, Lactated) Confirm Administered Dose 1,000 mls @ as directed .ROUTE .STK-MED ONE Stop: 07/15/17 10:21 Iodine (Iodine 2% Mild Tincture) Confirm Administered Dose 30 ml .ROUTE .STK- MED ONE Stop: 07/15/17 07:34 Last Admin: 07/15/17 09:41 Dose: 18 ml Ketorolac Tromethamine (Toradol) 15 mg IVPUSH ONETIME ONE Stop: 07/16/17 14:41 Last Admin: 07/16/17 15:10 Dose: 15 mg Lidocaine/Sodium Bicarbonate (Buffered Lidocaine 1% In Ns 8.4%) 0.25 ml .XX ONETIME PRN PRN Reason: Prior to IV Start Stop: 07/15/17 18:00 Last Admin: 07/15/17 07:29 Dose: 0.25 ml Losartan Potassium (Cozaar) 50 mg PO DAILY [facility] Last Admin: 07/16/17 08:54 Dose: 50 mg Magnesium Hydroxide (Milk Of Magnesia) 30 ml PO BID PRN PRN Reason: Constipation Midazolam HCl (Versed 1 Mg/Ml) Confirm Administered Dose 2 mg .ROUTE .STK-MED ONE Stop: 07/15/17 07:12 Morphine Sulfate (Duramorph Pf) Confirm Administered Dose 10 mg .ROUTE .STK-MED ONE Stop: 07/15/17 07:12 Morphine Sulfate (Morphine) 2 mg IVPUSH Q2H PRN PRN Reason: Breakthrough Pain Last Admin: 07/16/17 10:07 Dose: 2 mg Ondansetron HCl (Zofran) Confirm Administered Dose 4 mg .ROUTE .STK-MED ONE Stop: 07/15/17 07:11 Ondansetron HCl (Zofran) 4 mg IVPUSH Q6H PRN PRN Reason: Nausea/Vomiting Ondansetron HCl (Zofran) 4 mg IVPUSH ONETIME PRN PRN Reason: Nausea/Vomiting Oxycodone HCl (Oxycodone) 5 mg PO Q6H PRN PRN Reason: Pain (severe 7-10) Last Admin: 07/16/17 13:42 Dose: 5 mg Oxycodone/Acetaminophen (Percocet 325-5 Mg) 1 - 2 tab PO Q4H PRN PRN Reason: Pain Last Admin: 07/16/17 11:32 Dose: 2 tab Propofol (Diprivan 20 Ml) Confirm Administered Dose 400 mg .ROUTE .STK-MED ONE Stop: 07/15/17 07:12 Propofol (Diprivan 20 Ml) Confirm Administered Dose 200 mg .ROUTE .STK-MED ONE Stop: 07/15/17 09:29 Rivaroxaban (Xarelto) 10 mg PO DAILY [facility] Last Admin: 07/16/17 08:55 Dose: 10 mg Senna (Senna) 8.6 mg PO BID PRN PRN Reason: Constipation Sodium Chloride (Saline Flush) 10 ml FLUSH ASDIRECTED PRN PRN Reason: Keep Vein Open Stop: 07/15/17 18:00 Tranexamic Acid (Cyklokapron) Confirm Administered Dose 1,000 mg .ROUTE .STK- MED ONE Stop: 07/15/17 07:34 Last Admin: 07/15/17 09:56 Dose: 1,000 mg Vancomycin HCl (Vancomycin) 1 gm .XX ONETIME ONE Stop: 07/15/17 11:01 Last Admin: 07/15/17 13:12 Dose: Not Given *Q Meaningful Use (DIS) - VTE *Q VTE Criteria *Q: - Stroke *Q Stroke Criteria *Q: - AMI *Q AMI Criteria *Q:
--- NOTE | 2017-07-24 21:42 | PCM.OPNOTE ---
- General Post-Op/Procedure Note Date of Surgery/Procedure: 07/15/17 Operative Procedure(s): right total knee arthroplasty Pre Op Diagnosis: right knee osteoarthrosis Post-Op Diagnosis: Same Anesthesia Technique: Local, MAC, Spinal Primary Surgeon: Omar Laird Anesthesia Provider: Steffany Flores Independent Insurance Adjuster: Sharon Benavides Independent Insurance Adjuster: Tiffanie Velazquez in mLs: 5 Complications: None Condition: Good
--- NOTE | 2017-07-24 22:34 | OR ---
DATE OF OPERATION: 07/15/2017 SURGEON: Omar Laird MD OPERATION PERFORMED: Right total knee arthroplasty. PREOPERATIVE DIAGNOSIS: Right knee osteoarthrosis. POSTOPERATIVE DIAGNOSIS: Right knee osteoarthrosis. ANESTHESIA: Local MAC with spinal. ANESTHESIA PROVIDER: Dr. Steffany Flores. MOTOCROSS RACER: Sharon Benavides PA-C and Tiffanie Velazquez LPN. ESTIMATED BLOOD LOSS: 5 mL. COMPLICATIONS: None. CONDITION: Stable. IMPLANTS: 1. [place] size 3 PS femur. 2. [place] size 3 universal tibial baseplate. 3. [place] size 3, 9 mm PS X3 polyethylene. 4. [place] size 29 x 9 mm asymmetric patella. DESCRIPTION OF PROCEDURE: The patient was identified in the preop holding area. Proper site was marked and identified by the surgeon. The patient was taken back to the operating theater. After adequate anesthesia, the patient's right lower extremity had a nonsterile tourniquet applied and it was then sterilely prepped and draped in the usual sterile fashion. OR timeout was performed. The patient received 2 g IV Ancef. At this time, right lower extremity was exsanguinated. Tourniquet was insufflated to 300 mmHg. Standard medial parapatellar incision was made. Medial parapatellar arthrotomy was created. Deep fibers of the MCL were raised and anterior fat pad was resected. At this time, attention was turned to the patella. Patella measured 23, it was resected to a 13 for a 29 x 9 mm patella. Drill holes were then drilled and found to be in adequate position. The drill was then drilled in the distal femur and the intramedullary distal femoral cutting guide was then placed. 8 mm was resected off the distal femur and was found to be an adequate resection. Sizing guide was placed. It was found to be a size 3 PS femur that was shown on the implant record at the beginning of this dictation. The drill holes were drilled for the epicondylar axis using [place] line and epicondyles as reference. At this time, the 4-in-1 cutting block was placed. An anterior posterior and anterior and posterior chamfer cuts were then completed. The correct size box cut was then placed and the box cut was completed and found to be an adequate resection. Attention was turned to the tibia. The posterior medial lateral retractors were placed. The extramedullary tibial guide was placed. It was placed in the old footprint of the ACL. It was aligned with the center of the ankle and 0 degrees of slope, 9 mm was then resected off the unaffected lateral side. There was found to be an acceptable reduction. At this time, posterior osteophytes were removed along with medial and lateral meniscus. A trial implant was placed with a correct sized tibia that was mentioned at the beginning of the dictation. A 9 mm trial spacer was then placed. The patient's knee was brought through range of motion. The patella was tracking centrally and was stable to varus and valgus stress. Alignment was found to be roughly at 0 degrees. At this time, cement was mixed on the back table. The tibia was stamped and drilled in proper rotation. All cut surfaces were irrigated with pulse lavage irrigation with Ancef and then completely dried. Once this was completed, then the cement was ready. The universal tibial base plate was cemented in place. Next, [place] size 3 PS femur cemented into place and the 9 mm PS X3 polyethylene was placed. The patient's knee was brought into full extension. Excess cement was removed. The patella was then cemented in place at this time. Tourniquet was deflated. One liter dilute Betadine solution was irrigated through the knee along with 3 L of pulse lavage irrigation with Ancef. Periarticular injection was then completed. The patient's knee was brought through a range of motion. Once the cement had time to set up and it was found to be stable to varus valgus stress, the patella was tracking centrally with full range of motion. At this time, a #2 barbed suture was used for closure of the medial parapatellar arthrotomy. Topical tranexamic acid was placed. 2-0 Vicryl was used subcutaneously, a running 3-0 Monocryl was used subcuticularly. The patient tolerated the procedure well and was sent to the PACU in stable condition. MMODAL /[id number]
== END 2017-07-16 17:45 | disposition home or self-care (01) | DRG 302 ==
LOC: JD.MS 06:58
PROVIDERS: ADMIT Orthopaedic Surgery; ATTEND Orthopaedic Surgery
PROC: 0SRC0J9 Replacement of Right Knee Joint with Synthetic Substitute, Cemented, Open Approach (ICD-10-PCS; principal; 2017-07-15)
DX: M17.11 Unilateral primary osteoarthritis, right knee (principal); Z87.891 Personal history of nicotine dependence; I10 Essential (primary) hypertension; Z88.2 Allergy status to sulfonamides; Z79.899 Other long term (current) drug therapy; E78.5 Hyperlipidemia, unspecified
CPT/HCPCS: 01402; 36415; 73560-26-RT; 73560-RT; 80053; 85027; 87641; 94762; 97110-GP; 97116-GP; 97162-GP; 97165-GO; 97535-GO; 99231; A9270-GY; C1713; C1776; J0171; J0690; J0697; J1885; J2250; J2270; J2405; J2704; J3010; J3490; J7120

== ENCOUNTER → 2020-06-30 | Day surgery (SDC) | payer MEDICARE, OTHER ==
[~2020-06-30] MED LIST: Cefuroxime 10 MG/ML SYRINGE EYERT SCH; Lidocaine 1% PF 2 ML SDV INJECT SCH; Pilocarpine 4% Ophth Soln 15 ML Bot EYERT SCH; Polymyxin B/Trimethoprim 10 ML Bottle EYERT SCH
--- NOTE | 2020-06-30 07:03 | PCM.PREANE ---
Preanesthetic Assessment - Anesthesia/Transfusion/Family Hx Anesthesia History: Prior Anesthesia Without Reaction Family History of Anesthesia Reaction: No Transfusion History: No Prior Transfusion(s) - Review of Systems General: No Symptoms Pulmonary: No Symptoms, Other (HTN) Cardiovascular: No Symptoms Gastrointestinal: No Symptoms Neurological: No Symptoms Other: Reports: Thyroid Problems - Physical Assessment NPO Status Date: 06/29/20 NPO Status Time: 20:00 Weight: 76.657 kg ASA Class: 2 Mental Status: Alert & Oriented x3 Airway Class: Mallampati = 2 Dentition: Reports: Normal Dentition Thyro-Mental Finger Breadths: 3 Mouth Opening Finger Breadths: 3 ROM/Head Extension: Full Lungs: Clear to Auscultation, Normal Respiratory Effort Cardiovascular: Regular Rate, Regular Rhythm - Allergies Allergies/Adverse Reactions: Allergies Allergy/AdvReac Type Severity Reaction Status Date / Time Sulfa (Sulfonamide Allergy Hives Verified 06/29/20 15:33 Antibiotics) - Blood Blood Available: No Product(s) Available: None - Anesthesia Plan Pre-Op Medication Ordered: None - Acknowledgements Anesthesia Type Planned: MAC Pt an Appropriate Candidate for the Planned Anesthesia: Yes Alternatives and Risks of Anesthesia Discussed w Pt/Guardian: Yes Pt/Guardian Understands and Agrees with Anesthesia Plan: Yes PreAnesthesia Questionnaire HEENT History: Reports: Impaired Vision, Other (See Below) Other HEENT History: wears glasses Cardiovascular History: Reports: High Cholesterol, Hypertension Respiratory History: Reports: None Genitourinary History: Reports: None [employer] History: Reports: None Musculoskeletal History: Reports: Other (See Below) Other Musculoskeletal History: chronic ankle pain, low back pain, right knee pain, right leg fracture, ankle dislocation Neurological History: Reports: None Psychiatric History: Reports: None Endocrine/Metabolic History: Reports: Obesity/BMI 30+ Hematologic History: Reports: None Immunologic History: Reports: None Oncologic (Cancer) History: Reports: None Dermatologic History: Reports: None - Past Surgical History Cardiovascular Surgical History: Reports: None Respiratory Surgical History: Reports: None GI Surgical History: Reports: Bariatric Procedure, Colonoscopy Other GI Surgeries/Procedures: lap band gastric surgery Female Surgical History: Reports: None Endocrine Surgical History: Reports: None Neurological Surgical History: Reports: None Musculoskeletal Surgical History: Reports: Shoulder Surgery, Other (See Below) Other Musculoskeletal Surgeries/Procedures:: right leg fracture with surgery, knee arthroscopy, right rotator cuff repair - HOME MEDS Home Medications: Home Meds Losartan [Cozaar] 50 mg PO DAILY 07/14/17 [History] Multivitamin [Daily Avelina] 1 tab PO DAILY 07/14/17 [History] cloNIDine HCL [Catapres] 0.2 mg PO BEDTIME 07/14/17 [History] Meloxicam 15 mg PO DAILY PRN 06/29/20 [History] Thyroid Grain 1 dose PO DAILY 06/29/20 [History] metFORMIN [Glucophage] 500 mg PO DAILY 06/29/20 [History] traMADol [Ultram] 50 mg PO TID PRN 06/29/20 [History] - CURRENT (IN HOUSE) MEDS Current Meds: Current Medications Brimonidine Tartrate (Alphagan 0.2% Ophth Soln) 0 ml EYERT ASDIRECTED SOURAV Stop: 06/30/20 18:00 Cefuroxime Sodium (Zinacef) 0 mg EYERT ASDIRECTED SOURAV Stop: 06/30/20 18:00 Lidocaine HCl (Xylocaine-Mpf 1%) 0 ml INJECT ASDIRECTED SOURAV Stop: 06/30/20 18:00 Ofloxacin (Ocuflox 0.3% Ophth Soln) 0 ml EYERT ASDIRECTED SOURAV Stop: 06/30/20 18:00 Phenylephrine HCl (Immanuel-Synephrine 2.5% Ophth Soln) 0 ml EYERT ASDIRECTED SOURAV Stop: 06/30/20 18:00 Pilocarpine HCl (Pilocar 4% Ophth Soln) 0 ml EYERT ASDIRECTED SOURAV Stop: 06/30/20 18:00 Tetracaine HCl (Tetracaine 0.5% Steri-Unit Xiomara) 0 ml EYEBOTH ASDIRECTED SOURAV Stop: 06/30/20 18:00 Tropicamide (Mydriacyl 1% Ophth Soln) 0 ml EYERT ASDIRECTED SOURAV Stop: 06/30/20 18:00
[2020-06-30] MEDS: Ofloxacin 0.3% Ophth Soln 5 ML Bottle EYERT SCH ×3 (07:07→09:04)
[2020-06-30] MEDS: Brimonidine 0.2% Ophth Soln 5 ML Bottle EYERT SCH ×3 (07:11→09:04)
[2020-06-30] MEDS: Phenylephrine 2.5% Ophth Soln 2 ML Bot EYERT SCH ×5 (07:15→08:44)
[2020-06-30] MEDS: Tropicamide 1% Ophth Soln 15 ML Bottle EYERT SCH ×4 (07:19→07:55)
[2020-06-30] MEDS: Tetracaine HCl/PF 0.5% 4 ML Bottle EYEBOTH SCH ×4 (08:05→08:51)
--- NOTE | 2020-06-30 09:12 | PCM48HPAN ---
Post Anesthesia Note - EVALUATION WITHIN 48HRS OF ANESTHETIC Vital Signs in Normal Range: Yes Patient Participated in Evaluation: Yes Respiratory Function Stable: Yes Airway Patent: Yes Cardiovascular Function Stable: Yes Hydration Status Stable: Yes Pain Control Satisfactory: Yes Nausea and Vomiting Control Satisfactory: Yes Mental Status Recovered: Yes Vital Signs: Last Vital Signs Temp 36.1 C 06/30/20 07:00 Pulse 63 06/30/20 07:00 Resp 16 06/30/20 07:00 BP 110/47 L 06/30/20 07:00 Pulse Ox 100 06/30/20 07:00
== END ==
LOC: JD.SDS 06:52
PROVIDERS: ATTEND Ophthalmology
DX: E11.36 Type 2 diabetes mellitus with diabetic cataract (principal); H25.813 Combined forms of age-related cataract, bilateral; H16.103 Unspecified superficial keratitis, bilateral; H16.223 Keratoconjunctivitis sicca, not specified as Sjogren's, bilateral; H02.834 Dermatochalasis of left upper eyelid; H02.831 Dermatochalasis of right upper eyelid; I10 Essential (primary) hypertension; E03.9 Hypothyroidism, unspecified; Z98.890 Other specified postprocedural states; Z87.891 Personal history of nicotine dependence; Z79.899 Other long term (current) drug therapy
CPT/HCPCS: 66984; J0697; J2001; A9270-GY; C1780

== ENCOUNTER 2020-07-26 06:53 | Day surgery (SDC) | payer MEDICARE, OTHER ==
[2020-07-26] MEDS: Ofloxacin 0.3% Ophth Soln 5 ML Bottle EYELF SCH ×4 (07:02→08:20)
[2020-07-26] MEDS: Brimonidine 0.2% Ophth Soln 5 ML Bottle EYELF SCH ×4 (07:10→08:20)
--- NOTE | 2020-07-26 07:13 | PCM.PREANE ---
Preanesthetic Assessment - Procedure Proposed Procedure: Left Eye Cataract Extraction with IOL - Anesthesia/Transfusion/Family Hx Anesthesia History: Prior Anesthesia Without Reaction Transfusion History: No Prior Transfusion(s) - Review of Systems General: No Symptoms Pulmonary: No Symptoms Cardiovascular: Other (HTN) Gastrointestinal: No Symptoms Neurological: No Symptoms Other: Reports: Diabetes (Type II, oral agent for control) - Physical Assessment NPO Status Date: 07/25/20 NPO Status Time: 20:00 Vital Signs: Last Vital Signs Temp 36.2 C 07/26/20 06:45 Pulse 67 07/26/20 06:45 Resp 16 07/26/20 06:45 BP 100/51 L 07/26/20 06:45 Pulse Ox 99 07/26/20 06:45 Height: 1.57 m Weight: 75.296 kg ASA Class: 2 Mental Status: Alert & Oriented x3 Airway Class: Mallampati = 2 Dentition: Reports: Normal Dentition Thyro-Mental Finger Breadths: 3 Mouth Opening Finger Breadths: 3 ROM/Head Extension: Full Lungs: Clear to Auscultation, Normal Respiratory Effort Cardiovascular: Regular Rate, Regular Rhythm - Allergies Allergies/Adverse Reactions: Allergies Allergy/AdvReac Type Severity Reaction Status Date / Time Sulfa (Sulfonamide Allergy Hives Verified 07/25/20 16:27 Antibiotics) - Acknowledgements Anesthesia Type Planned: MAC Pt an Appropriate Candidate for the Planned Anesthesia: Yes Alternatives and Risks of Anesthesia Discussed w Pt/Guardian: Yes Pt/Guardian Understands and Agrees with Anesthesia Plan: Yes PreAnesthesia Questionnaire HEENT History: Reports: Impaired Vision, Other (See Below) Other HEENT History: wears glasses Cardiovascular History: Reports: High Cholesterol, Hypertension Respiratory History: Reports: None Genitourinary History: Reports: None ENAMELER History: Reports: None Musculoskeletal History: Reports: Other (See Below) Other Musculoskeletal History: chronic ankle pain, low back pain, right knee pain, right leg fracture, ankle dislocation Neurological History: Reports: None Psychiatric History: Reports: None Endocrine/Metabolic History: Reports: Obesity/BMI 30+ Hematologic History: Reports: None Immunologic History: Reports: None Oncologic (Cancer) History: Reports: None Dermatologic History: Reports: None - Past Surgical History Cardiovascular Surgical History: Reports: None Respiratory Surgical History: Reports: None GI Surgical History: Reports: Bariatric Procedure, Colonoscopy Other GI Surgeries/Procedures: lap band gastric surgery Female Surgical History: Reports: None Endocrine Surgical History: Reports: None Neurological Surgical History: Reports: None Musculoskeletal Surgical History: Reports: Shoulder Surgery, Other (See Below) Other Musculoskeletal Surgeries/Procedures:: right leg fracture with surgery, k nee arthroscopy, right rotator cuff repair - HOME MEDS Home Medications: Home Meds Losartan [Cozaar] 50 mg PO DAILY 07/14/17 [History] Multivitamin [Daily Avelina] 1 tab PO DAILY 07/14/17 [History] cloNIDine HCL [Catapres] 0.2 mg PO BEDTIME 07/14/17 [History] Meloxicam 15 mg PO DAILY PRN 06/29/20 [History] Thyroid Grain 1 dose PO DAILY 06/29/20 [History] metFORMIN [Glucophage] 500 mg PO DAILY 06/29/20 [History] traMADol [Ultram] 50 mg PO TID PRN 06/29/20 [History] - CURRENT (IN HOUSE) MEDS Current Meds: Current Medications Brimonidine Tartrate (Alphagan 0.2% Ophth Soln) 0 ml EYELF ASDIRECTED SOURAV Stop: 07/26/20 18:00 Last Admin: 07/26/20 07:10 Dose: 1 drop Documented by: Cefuroxime Sodium (Zinacef) 0 mg EYELF ASDIRECTED SOURAV Stop: 07/26/20 18:00 Lidocaine HCl (Xylocaine-Mpf 1%) 0 ml INJECT ASDIRECTED SOURAV Stop: 07/26/20 18:00 Ofloxacin (Ocuflox 0.3% Ophth Soln) 0 ml EYELF ONETIME SOURAV Stop: 07/26/20 18:00 Last Admin: 07/26/20 07:02 Dose: 1 drop Documented by: Phenylephrine HCl (Immanuel-Synephrine 2.5% Ophth Soln) 0 ml EYELF ASDIRECTED SOURAV Stop: 07/26/20 18:00 Pilocarpine HCl (Pilocar 4% Ophth Soln) 0 ml EYELF ASDIRECTED SOURAV Stop: 07/26/20 18:00 Tetracaine HCl (Tetracaine 0.5% Steri-Unit Xiomara) 0 ml EYEBOTH ASDIRECTED SOURAV Stop: 07/26/20 18:00 Tropicamide (Mydriacyl 1% Ophth Soln) 0 ml EYELF ASDIRECTED SOURAV Stop: 07/26/20 18:00
[2020-07-26] MEDS: Phenylephrine 2.5% Ophth Soln 2 ML Bot EYELF SCH ×6 (07:15→08:08)
[2020-07-26] MEDS: Tropicamide 1% Ophth Soln 15 ML Bottle EYELF SCH ×4 (07:22→07:46)
[2020-07-26] MEDS: Tetracaine HCl/PF 0.5% 4 ML Bottle EYEBOTH SCH ×3 (07:47→08:08)
[2020-07-26] MEDS: Lidocaine 1% PF 2 ML SDV INJECT SCH ×2 (08:06→08:08)
[2020-07-26] MEDS: Cefuroxime 10 MG/ML SYRINGE EYELF SCH ×2 (08:08→08:19)
[2020-07-26] MEDS: Pilocarpine 4% Ophth Soln 15 ML Bot EYELF SCH ×2 (08:09→08:20)
--- NOTE | 2020-07-26 08:19 | PCM48HPAN ---
Post Anesthesia Note - EVALUATION WITHIN 48HRS OF ANESTHETIC Vital Signs in Normal Range: Yes Patient Participated in Evaluation: Yes Respiratory Function Stable: Yes Airway Patent: Yes Cardiovascular Function Stable: Yes Hydration Status Stable: Yes Pain Control Satisfactory: Yes Nausea and Vomiting Control Satisfactory: Yes Mental Status Recovered: Yes Vital Signs: Last Vital Signs Temp 36.2 C 07/26/20 06:45 Pulse 67 07/26/20 06:45 Resp 16 07/26/20 06:45 BP 100/51 L 07/26/20 06:45 Pulse Ox 99 07/26/20 06:45
== END 2020-07-26 08:30 | disposition home or self-care (01) ==
LOC: JD.SDS 06:53
PROVIDERS: ATTEND Ophthalmology
DX: E11.36 Type 2 diabetes mellitus with diabetic cataract (principal); H25.812 Combined forms of age-related cataract, left eye; H16.223 Keratoconjunctivitis sicca, not specified as Sjogren's, bilateral; H02.834 Dermatochalasis of left upper eyelid; H02.831 Dermatochalasis of right upper eyelid; H16.103 Unspecified superficial keratitis, bilateral; I10 Essential (primary) hypertension; E78.00 Pure hypercholesterolemia, unspecified; E66.9 Obesity, unspecified; Z98.890 Other specified postprocedural states; Z79.899 Other long term (current) drug therapy; Z96.1 Presence of intraocular lens; Z88.2 Allergy status to sulfonamides; Z68.30 Body mass index [BMI] 30.0-30.9, adult
CPT/HCPCS: 66984; C1780; J0697; J2001; A9270-GY